=== PATIENT | male | born 1990 | race African-American/Black ===

== ENCOUNTER 2018-05-30 23:35 | Emergency (ER) | payer SELFPAY ==
[~2018-05-30] VITALS: Ht 188 cm; Wt 99.8 kg
--- NOTE | 2018-05-31 00:37 | Emergency Room Report ---
History of Present Illness General Chief Complaint: Alcohol Intoxication Source: EMS Present Illness HPI This is a 30-year-old -[place] male brought in as a Fernando Coates for alcohol consultation. He was found sleeping on somebody's yard. [facility] was called and he said he using Aleve but after an hour he was still there. So police was called again and this time EMS showed up. He was very intoxicated this and they brought him here. Unable to get much of a history from him. No injury however. No other complaint. Allergies: Coded Allergies: UNABLE TO ASSESS (Unverified , 05/30/18) Patient History Past Medical History: see triage record, old chart reviewed, unable to obtain Past Surgical History: unable to obtain Pertinent Family History: unable to obtain Social History: Reports: alcohol use Immunizations: other Reviewed Nursing Documentation: PMH: Agreed; PSxH: Agreed Nursing Documentation-PMH Past Medical History: No Stated History Review of Systems All Other Systems: limited - secondary to intoxication Physical Exam Vital Signs Date Time Temp Pulse Resp B/P (MAP) Pulse Ox O2 Delivery O2 Flow Rate FiO2 05/30/18 23:28 88 18 128/78 97 Room Air vitals normal Sp02 EP Interpretation: reviewed, normal General Appearance: well appearing, no apparent distress, Stupor - very intoxicated Head: normocephalic, atraumatic Eyes: bilateral eye PERRL, bilateral eye EOMI ENT: hearing grossly normal, normal pharynx Neck: full range of motion, supple, no meningismus Respiratory: chest non-tender, lungs clear, normal breath sounds Cardiovascular #1: regular rate, rhythm, no murmur Gastrointestinal: normal bowel sounds, non tender, no mass, no organomegaly, no bruit, non-distended Musculoskeletal: back normal, normal range of motion Neurologic: grossly normal - movement with painful stimuli Skin: warm/dry Medical Decision Making Diagnostic Impression: Primary Impression: Acute alcoholic intoxication Qualified Codes: F10.929 - Alcohol use, unspecified with intoxication, unspecified ER Course Is with alcohol intoxication. We'll observe until clinical sobriety. I see no evidence of any trauma on him. At this moment in time, I see no need for x-ray or CT scan. Patient is now awake and able to give me his name and date of . He still intoxicated. He will call his parents or taxi to pick him up. We'll watch him for a little bit longer. Last Vital Signs Date Time Temp Pulse Resp B/P (MAP) Pulse Ox O2 Delivery O2 Flow Rate FiO2 05/30/18 23:28 88 18 128/78 97 Room Air Status: improved Disposition: HOME, SELF-CARE Condition: Stable Referrals: NOT CHOSEN IPA/MD,REFERRING (PCP) Patient Instructions: Alcohol Intoxication, [id number] Additional Instructions: Abstain from alcohol. Follow-up your doctor in 7 days. Return if worse. ANSELMO JACK M.D. May 31, 2018 00:37
[2018-05-31 03:49] VITALS: BP 124/71
[2018-05-31 06:50] VITALS: BP 124/71
== END 2018-05-31 06:50 | disposition home or self-care (01) ==
LOC: EDBD 23:35 → EMR 23:59 → EDBD 23:59 → EMR 05-31 06:50
DX: F10.129 Alcohol abuse with intoxication, unspecified (principal)
CPT/HCPCS: 99282